=== PATIENT | male | born 1975 | race Caucasian/White ===

== ENCOUNTER 2019-03-24 17:42 | Emergency (ER) | payer SELFPAY ==
[~2019-03-24] VITALS: Ht 160 cm; Wt 97.7 kg
[2019-03-24 17:50] VITALS: BP 120/75
== END 2019-03-24 19:30 | disposition left against medical advice (07) ==
LOC: EMS 17:45
DX: R68.84 Jaw pain (principal); H92.01 Otalgia, right ear; F17.210 Nicotine dependence, cigarettes, uncomplicated; Z53.21 Procedure and treatment not carried out due to patient leaving prior to being seen by health care provider

== ENCOUNTER 2021-10-30 16:26 | Emergency (ER) | payer OTHER ==
[~2021-10-30] VITALS: Ht 162.6 cm; Wt 113.2 kg
[2021-10-30 18:30] LABS: BASOPHILS % (AUTO) 0.4 % (0.0-2.0); EOSINOPHILS % (AUTO) 3.3 % (1.0-6.0); HEMATOCRIT 44.4 % (41-53); HEMOGLOBIN 15.2 g/dL (13.5-17.5); LYMPHOCYTES # (AUTO) 2.1 K/uL (1.0-4.8); LYMPHOCYTES % (AUTO) 22.8 % (22.0-44.0); MEAN CORPUSCULAR HGB CONC 34.3 G/dL (31.0-37.0); MEAN CORPUSCULAR VOLUME 87 fL (80-100); MONOCYTES % (AUTO) 10.9 % (2.0-9.0); NEUTROPHILS # (AUTO) 5.9 K/uL (1.8-7.7); NEUTROPHILS % (AUTO) 62.6 % (40.0-70.0); PLATELET COUNT (AUTO) 288 K/uL (150-450); RED BLOOD CELL COUNT(AUTO) 5.07 MIL/uL (4.50-5.90); RED CELL DISTRIBUTION WIDTH 13.8 % (11.5-14.5)
[2021-10-30 18:38] LABS: ANION GAP 9 mmol/L (8-16); CALCIUM, TOTAL 8.8 mg/dL (8.8-10.5); CARBON DIOXIDE 27 mmol/L (22-29); CHLORIDE 100 mmol/L (98-107); CREATININE 0.83 mg/dL (0.60-1.30); GLOMERULAR FILTR. RATE CALC > 60 mL/min (>60); GLUCOSE,RANDOM 92 mg/dL (70-110); POTASSIUM 4.2 mmol/L (3.5-5.1); SODIUM SERUM 136 mmol/L (136-145); UREA NITROGEN, BLOOD 9 mg/dL (7-18)
[2021-10-30 18:46] LABS: ALANINE AMINOTRANSFERASE 182 U/L (12-78); ALBUMIN 3.9 g/dL (3.4-5.0); ALKALINE PHOSPHATASE 109 U/L (46-116); ASPARTATE AMINOTRANSFERASE 112 U/L (15-37); BILIRUBIN,TOTAL 0.7 mg/dL (0.1-1.0); LIPASE 107 U/L (73-393); TOTAL PROTEIN, SERUM 8.7 g/dL (6.4-8.2)
[2021-10-30] MEDS ORDERED: SODIUM CHLORIDE 0.9% 100 ML ONE (18:46)
[2021-10-30] MEDS ORDERED: IOHEXOL 350 MG/ML 150 ML VIAL ONE (18:46)
[2021-10-30] MEDS ORDERED: MORPHINE SULFATE 4 MG/ML SYRINGE IVP ONE (19:30)
[2021-10-30] MEDS ORDERED: AMOX TR/POT CLAV 875 MG/125 MG TABLET PO ONE (21:15)
[2021-10-30] MEDS ORDERED: AMOX1TAB16 PO (21:17)
[2021-10-30 21:21] LABS: APPEARANCE,URINE CLEAR (CLEAR); BILIRUBIN,URINE NEGATIVE (NEGATIVE); GLUCOSE, URINE (UA) NEGATIVE (NEGATIVE); KETONES,URINE NEGATIVE (NEGATIVE); LEUKOCYTE ESTERASE ,URINE NEGATIVE (NEGATIVE); NITRATE,URINE NEGATIVE (NEGATIVE); OCCULT BLOOD,URINE NEGATIVE (NEGATIVE); PROTEIN,URINE NEGATIVE (NEGATIVE); UROBILINOGEN,URINE 0.2 mg/dL (<=1.0)
[2021-10-30 21:24] LABS: BACTERIA,URINE None Seen /HPF (None Seen); RBC,URINE None Seen /HPF (0-2); SQUAMOUS EPITHELIAL CELL,UR None Seen /LPF (None Seen); WBC,URINE None Seen /HPF (0-5)
[2021-10-30 22:02] VITALS: BP 133/95
== END 2021-10-30 22:34 | disposition home or self-care (01) ==
LOC: EMS 16:28
DX: K63.89 Other specified diseases of intestine (principal); K52.9 Noninfective gastroenteritis and colitis, unspecified; R74.01 Elevation of levels of liver transaminase levels
CPT/HCPCS: 36415; 71045; 74177; 80053; 81001; 83690; 83880; 84484; 85025; 93005; 96374; 99285; J2270; J7050; Q9967

== ENCOUNTER 2022-01-09 17:56 | Emergency (ER) | payer OTHER ==
[~2022-01-09] VITALS: Ht 160 cm; Wt 113.6 kg
[~2022-01-09 17:56] MED LIST: AMOX1TAB16 PO
[2022-01-09] MEDS ORDERED: KETOROLAC TROMETHAMINE 30 MG/ML VIAL IM ONE (20:00)
[2022-01-09] MEDS ORDERED: HYDR-4723 PO (20:30)
[2022-01-09] MEDS ORDERED: IBUP-2071 PO (20:32)
[2022-01-09 20:53] VITALS: BP 152/95
== END 2022-01-09 21:04 | disposition home or self-care (01) ==
LOC: EMS 17:56
DX: S52.602A Unspecified fracture of lower end of left ulna, initial encounter for closed fracture (principal); S80.212A Abrasion, left knee, initial encounter; F17.200 Nicotine dependence, unspecified, uncomplicated; V49.9XXA Car occupant (driver) (passenger) injured in unspecified traffic accident, initial encounter; Y93.89 Activity, other specified; Y92.89 Other specified places as the place of occurrence of the external cause; Y99.8 Other external cause status
CPT/HCPCS: 29125; 70450; 72125; 73090; 73110; 96372; 99284; J1885

== ENCOUNTER 2023-06-06 07:25 | Emergency (ER) | payer OTHER ==
[~2023-06-06] VITALS: Ht 165.1 cm; Wt 109.1 kg
[~2023-06-06 07:25] MED LIST changes: -AMOX1TAB16 PO; +HYDR-4723 PO; +IBUP-1493 PO
[2023-06-06 07:36] VITALS: TEMP 98.2
[2023-06-06] MEDS ORDERED: MORPHINE SULFATE 2 MG/ML SYRINGE IVP ONE (08:15)
[2023-06-06] MEDS ORDERED: SODIUM CHLORIDE 0.9% 1,000 ML IV ONE (08:15)
[2023-06-06] MEDS ORDERED: ONDANSETRON HCL 4 MG/2 ML VIAL IVP ONE (08:15)
[2023-06-06 08:22] LABS: BASOPHILS % (AUTO) 0.5 % (0.0-2.0); EOSINOPHILS % (AUTO) 2.6 % (1.0-6.0); HEMATOCRIT 45.7 % (41-53); HEMOGLOBIN 15.4 g/dL (13.5-17.5); LYMPHOCYTES % (AUTO) 28.4 % (22.0-44.0); MEAN CORPUSCULAR HGB CONC 33.7 G/dL (31.0-37.0); MEAN CORPUSCULAR VOLUME 89 fL (80-100); MONOCYTES # (AUTO) 0.6 K/uL (0.1-1.0); MONOCYTES % (AUTO) 8.3 % (2.0-9.0); NEUTROPHILS # (AUTO) 4.2 K/uL (1.8-7.7); NEUTROPHILS % (AUTO) 60.2 % (40.0-70.0); PLATELET COUNT (AUTO) 273 K/uL (150-450); RED BLOOD CELL COUNT(AUTO) 5.15 MIL/uL (4.50-5.90); WHITE BLOOD COUNT (AUTO) 6.9 K/uL (4.5-11.0)
[2023-06-06 08:30] LABS: ANION GAP 3 mmol/L (8-16); CALCIUM, TOTAL 8.7 mg/dL (8.8-10.5); CARBON DIOXIDE 24 mmol/L (22-29); CHLORIDE 100 mmol/L (98-107); CREATININE 0.83 mg/dL (0.60-1.30); GLOMERULAR FILTR. RATE CALC > 60 mL/min (>60); GLUCOSE,RANDOM 107 mg/dL (70-110); POTASSIUM 3.5 mmol/L (3.5-5.1); SODIUM SERUM 127 mmol/L (136-145); UREA NITROGEN, BLOOD 14 mg/dL (7-18)
[2023-06-06 08:37] LABS: ALANINE AMINOTRANSFERASE 70 U/L (12-78); ALBUMIN 3.9 g/dL (3.4-5.0); ALKALINE PHOSPHATASE 65 U/L (46-116); ASPARTATE AMINOTRANSFERASE 70 U/L (15-37); BILIRUBIN,TOTAL 1.5 mg/dL (0.1-1.0); LIPASE 32 U/L (16-77); TOTAL PROTEIN, SERUM 7.9 g/dL (6.4-8.2)
[2023-06-06 08:58] LABS: APPEARANCE,URINE CLEAR (CLEAR); BILIRUBIN,URINE NEGATIVE (NEGATIVE); COLOR,URINE YELLOW (YELLOW); GLUCOSE, URINE (UA) NEGATIVE (NEGATIVE); KETONES,URINE NEGATIVE (NEGATIVE); LEUKOCYTE ESTERASE ,URINE NEGATIVE (NEGATIVE); NITRATE,URINE NEGATIVE (NEGATIVE); OCCULT BLOOD,URINE NEGATIVE (NEGATIVE); PH,URINE 5.5 (5.0-8.0); PROTEIN,URINE 30-70 mg/dL (NEGATIVE); SPECIFIC GRAVITIY, URINE 1.029 (1.003-1.030); UROBILINOGEN,URINE <=1.0 mg/dL (<=1.0)
[2023-06-06 09:33] VITALS: BP 120/78; PULSE 61; RESP 18
[2023-06-06] MEDS ORDERED: ACET-3385 PO (09:33)
[2023-06-06] MEDS ORDERED: SULF-261 PO (09:33)
[2023-06-06] MEDS ORDERED: METR500 PO (09:33)
== END 2023-06-06 10:01 | disposition home or self-care (01) ==
LOC: EMS 07:25
DX: K57.92 Diverticulitis of intestine, part unspecified, without perforation or abscess without bleeding (principal); E87.1 Hypo-osmolality and hyponatremia; E80.7 Disorder of bilirubin metabolism, unspecified
CPT/HCPCS: 99285; 74176; 96374; 96361; 96375; 80053; 81003; 83690; 85025; 36415; J2270; J2405; J7030

== ENCOUNTER 2023-06-23 11:23 | Emergency (ER) | payer OTHER ==
[~2023-06-23] VITALS: Ht 160 cm; Wt 109.1 kg
[~2023-06-23 11:23] MED LIST changes: +ACET-3385 PO; +METR500 PO; +SULF-261 PO
[2023-06-23 11:28] VITALS: TEMP 98.7
[2023-06-23] MEDS ORDERED: LORazepam 2 MG TABLET PO ONE (12:45)
[2023-06-23] MEDS ORDERED: ONDANSETRON HCL 4 MG TABLET PO ONE (12:45)
[2023-06-23 12:55] LABS: BASOPHILS % (AUTO) 0.3 % (0.0-2.0); EOSINOPHILS % (AUTO) 0.9 % (1.0-6.0); HEMATOCRIT 45.2 % (41-53); HEMOGLOBIN 15.4 g/dL (13.5-17.5); LYMPHOCYTES # (AUTO) 1.7 K/uL (1.0-4.8); LYMPHOCYTES % (AUTO) 19.5 % (22.0-44.0); MEAN CORPUSCULAR HEMOGLOBIN 30.3 pg (26.0-34.0); MEAN CORPUSCULAR VOLUME 89 fL (80-100); MONOCYTES # (AUTO) 0.8 K/uL (0.1-1.0); MONOCYTES % (AUTO) 9.4 % (2.0-9.0); NEUTROPHILS % (AUTO) 69.9 % (40.0-70.0); PLATELET COUNT (AUTO) 277 K/uL (150-450); RED BLOOD CELL COUNT(AUTO) 5.06 MIL/uL (4.50-5.90); WHITE BLOOD COUNT (AUTO) 8.5 K/uL (4.5-11.0)
[2023-06-23 13:06] LABS: ANION GAP 9 mmol/L (8-16); CARBON DIOXIDE 27 mmol/L (22-29); CHLORIDE 100 mmol/L (98-107); CREATININE 0.72 mg/dL (0.60-1.30); GLOMERULAR FILTR. RATE CALC > 60 mL/min (>60); GLUCOSE,RANDOM 108 mg/dL (70-110); POTASSIUM 3.4 mmol/L (3.5-5.1); SODIUM SERUM 136 mmol/L (136-145); UREA NITROGEN, BLOOD 13 mg/dL (7-18)
[2023-06-23 13:11] LABS: ALANINE AMINOTRANSFERASE 61 U/L (12-78); ALKALINE PHOSPHATASE 62 U/L (46-116); ASPARTATE AMINOTRANSFERASE 35 U/L (15-37); BILIRUBIN,TOTAL 1.3 mg/dL (0.1-1.0); LIPASE 33 U/L (16-77); TOTAL PROTEIN, SERUM 8.1 g/dL (6.4-8.2)
[2023-06-23 13:12] LABS: TROPONIN I-HIGH SENSITIVITY 5 ng/L (<76)
[2023-06-23 13:22] LABS: ALCOHOL, BLOOD (SERUM) < 3 mg/dL (0-10)
[2023-06-23 13:36] VITALS: BP 122/82; PULSE 67; RESP 16
[2023-06-23] MEDS ORDERED: ONDA-104 PO (13:39)
[2023-06-23] MEDS ORDERED: LIB25 PO (13:39)
[2023-06-23] MEDS ORDERED: MAG30ORA11 PO (13:39)
== END 2023-06-23 14:04 | disposition home or self-care (01) ==
LOC: EMS 11:25
DX: F10.939 Alcohol use, unspecified with withdrawal, unspecified (principal); Y90.9 Presence of alcohol in blood, level not specified
CPT/HCPCS: 99284; 80053; 83690; 84484; 85025; 36415; G0480; Q0162

== ENCOUNTER 2023-07-11 10:19 | Emergency (ER) | payer OTHER ==
[~2023-07-11] VITALS: Ht 165.1 cm; Wt 111.4 kg
[~2023-07-11 10:19] MED LIST changes: +LIB25 PO; +MAG30ORA11 PO; +ONDA-104 PO
[2023-07-11 10:30] VITALS: TEMP 98.5
[2023-07-11 11:19] LABS: BASOPHILS % (AUTO) 0.5 % (0.0-2.0); EOSINOPHILS % (AUTO) 3.4 % (1.0-6.0); HEMATOCRIT 42.6 % (41-53); HEMOGLOBIN 14.4 g/dL (13.5-17.5); MEAN CORPUSCULAR HEMOGLOBIN 30.4 pg (26.0-34.0); MEAN CORPUSCULAR HGB CONC 33.7 G/dL (31.0-37.0); MEAN CORPUSCULAR VOLUME 90 fL (80-100); MONOCYTES # (AUTO) 0.6 K/uL (0.1-1.0); MONOCYTES % (AUTO) 8.9 % (2.0-9.0); NEUTROPHILS # (AUTO) 3.8 K/uL (1.8-7.7); NEUTROPHILS % (AUTO) 57.2 % (40.0-70.0); PLATELET COUNT (AUTO) 263 K/uL (150-450); RED BLOOD CELL COUNT(AUTO) 4.72 MIL/uL (4.50-5.90); RED CELL DISTRIBUTION WIDTH 14.2 % (11.5-14.5); WHITE BLOOD COUNT (AUTO) 6.6 K/uL (4.5-11.0)
[2023-07-11 11:37] LABS: ANION GAP 7 mmol/L (8-16); CALCIUM, TOTAL 8.4 mg/dL (8.8-10.5); CARBON DIOXIDE 29 mmol/L (22-29); CHLORIDE 103 mmol/L (98-107); CREATININE 0.94 mg/dL (0.60-1.30); GLOMERULAR FILTR. RATE CALC > 60 mL/min (>60); GLUCOSE,RANDOM 159 mg/dL (70-110); SODIUM SERUM 139 mmol/L (136-145); UREA NITROGEN, BLOOD 11 mg/dL (7-18)
[2023-07-11 11:38] LABS: ALCOHOL, BLOOD (SERUM) 29 mg/dL (0-10)
[2023-07-11 11:43] LABS: ALANINE AMINOTRANSFERASE 88 U/L (12-78); ALBUMIN 3.6 g/dL (3.4-5.0); ALKALINE PHOSPHATASE 62 U/L (46-116); ASPARTATE AMINOTRANSFERASE 85 U/L (15-37); BILIRUBIN,TOTAL 0.6 mg/dL (0.1-1.0); TOTAL PROTEIN, SERUM 7.9 g/dL (6.4-8.2)
[2023-07-11] MEDS ORDERED: ONDA-104 PO (12:34)
[2023-07-11] MEDS ORDERED: GABA-1181 PO (12:34)
[2023-07-11 12:36] VITALS: BP 128/68; PULSE 76; RESP 16
== END 2023-07-11 13:03 | disposition home or self-care (01) ==
LOC: EMS 10:19
DX: F10.239 Alcohol dependence with withdrawal, unspecified (principal); Y90.9 Presence of alcohol in blood, level not specified
CPT/HCPCS: 99283; 80053; 85025; 36415; G0480